=== PATIENT | female | born 1960 | race Caucasian/White ===

== ENCOUNTER 2018-06-30 09:20 | Emergency (ER) | payer SELFPAY ==
[2018-06-30] MEDS ORDERED: DEBROX15 ML OT (09:32)
[2018-06-30 09:35] VITALS: BP 163/83
== END 2018-06-30 09:54 | disposition home or self-care (01) ==
LOC: ER 09:20
DX: H92.02 Otalgia, left ear (principal); H61.22 Impacted cerumen, left ear; F17.210 Nicotine dependence, cigarettes, uncomplicated
CPT/HCPCS: 99282

== ENCOUNTER 2019-01-19 09:18 | Emergency (ER) | payer SELFPAY ==
[~2019-01-19 09:18] MED LIST: DEBROX15 ML OT
[2019-01-19] MEDS ORDERED: SODIUM CHLORIDE 0.9% 1000ML 1,000 ML ONE (09:39)
[2019-01-19] MEDS ORDERED: SODIUM CHLORIDE 0.9% 1000ML 1,000 ML IV ONE (09:45)
[2019-01-19] MEDS ORDERED: DICYCLOMINE HCL 20 MG/2 ML VIAL IM ONE (09:45)
[2019-01-19 09:51] LABS: BASOPHILS % 0.8 % (0.0-1.0); EOSINOPHILS # (AUTO) 0.1 (0.0-0.4); EOSINOPHILS % 1.6 % (0.0-6.0); HEMATOCRIT 44.5 % (34.2-44.1); HEMOGLOBIN 14.6 g/dL (12.0-16.0); LYMPHOCYTES # (AUTO) 1.4 (1.0-3.2); MEAN CORPUSCULAR HEMOGLOBIN 25.6 pg (28-32); MEAN CORPUSCULAR HGB CONC 32.8 g/dL (31-35); MEAN CORPUSCULAR VOLUME 78.1 fL (81-99); MONOCYTES # (AUTO) 0.4 (0.2-0.8); MONOCYTES % 8.3 % (4.4-11.3); NEUTROPHILS % 61.1 % (38.7-80.0); PLATELET COUNT 183 x10e3/uL (140-360); RED CELL DISTRIBUTION WIDTH 13.7 % (11.7-14.4)
[2019-01-19] MEDS ORDERED: KETOROLAC TROMETHAMINE 30 MG/ML VIAL IV ONE (10:00)
[2019-01-19 10:07] LABS: BILIRUBIN,URINE NEGATIVE (NEGATIVE); CLARITY,URINE SL CLOUDY (CLEAR); COLOR,URINE YELLOW (YELLOW); KETONES,URINE NEGATIVE (NEGATIVE); LEUKOCYTE ESTERASE ,URINE 1+ (NEGATIVE); NITRITE,URINE NEGATIVE (NEGATIVE); PROTEIN,URINE DIPSTICK NEGATIVE (NEGATIVE); URINE UROBILINOGEN 0.2 mg/dL (0.2 - 1)
[2019-01-19 10:22] LABS: ALANINE AMINOTRANSFERASE 15 IU/L (0-55); ALBUMIN 4.2 g/dL (3.5-5.0); ALBUMIN/GLOBULIN RATIO 1.1 (0.8-2.0); ALKALINE PHOSPHATASE 85 IU/L (40-150); AMYLASE 29 U/L (25-125); ANION GAP 10.3 mmol/L (8-16); BLOOD UREA NITROGEN 11 mg/dL (7-26); BUN/CREATININE RATIO 14 (6-25); CALCIUM 9.8 mg/dL (8.4-10.2); CARBON DIOXIDE 29 mmol/L (22-29); CHLORIDE 101 mmol/L (98-107); CREATININE, SERUM 0.79 mg/dL (0.57-1.11); EST GLOMERULAR FILTRATION RATE > 60 ML/MIN (60-); GLUCOSE 93 mg/dL (74-118); LIPASE 20 U/L (8-78); POTASSIUM 4.3 mmol/L (3.5-5.1); SODIUM 136 mmol/L (136-145)
[2019-01-19 10:25] LABS: BACTERIA,URINE RARE /HPF; EPITHELIAL CELLS,URINE RARE /LPF
[2019-01-19 10:26] LABS: AMORPHOUS SEDIMENT,URINE FEW (FEW); TRANSITIONAL EPI CELLS,URINE RARE
[2019-01-19] MEDS ORDERED: CEFTRIAXONE SOD 1 GM/NS 50 ML 50 ML IV ONE (10:45)
--- NOTE | 2019-01-19 13:19 | Diagnostic Imaging Report ---
EXAM: CT Abdomen and Pelvis WITH contrast INDICATION: Abdominal Pain COMPARISON: None. TECHNIQUE: Abdomen and pelvis were scanned utilizing a multidetector helical scanner from the lung base to the pubic symphysis after administration of IV contrast. Coronal and sagittal reformations were obtained. Routine protocol was performed. Scan was performed when during portal venous phase. IV CONTRAST: 100 cc of Isovue-[id number]. ORAL CONTRAST: Water COMPLICATIONS: None RADIATION DOSE: Total DLP: 859.1 mGy*cm Dose modulation, iterative reconstruction, and/or weight based adjustment of the mA/kV was utilized to reduce the radiation dose to as low as reasonably achievable. FINDINGS: LINES and TUBES: None. LOWER THORAX: Mosaic attenuation may reflect air trapping versus atelectasis. HEPATOBILIARY: Diffuse mild hepatic steatosis. No evidence of focal lesion. No biliary ductal dilation. GALLBLADDER: Cholelithiasis without CT evidence of cholecystitis. 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 No splenomegaly. PANCREAS: No focal masses or ductal dilatation. ADRENALS: No adrenal nodules KIDNEYS/URETERS: Kidneys enhance symmetrically. No evidence of solid mass or stone. Punctate right renal hypodensities are too small to characterize, but likely represent cysts. Bilateral pelviectasis without shauna hydronephrosis. GI TRACT: No evidence of wall thickening or distension. Appendix is not clearly identified. There is however no fat stranding or adenopathy in the right lower quadrant to suggest appendicitis. Small hiatal hernia. Mild circumferential thickening of the distal esophagus. PELVIC ORGANS/BLADDER: Unremarkable. LYMPH NODES: No lymphadenopathy. VESSELS: Unremarkable. PERITONEUM / RETROPERITONEUM: No free air or fluid. BONES AND SOFT TISSUES: No acute osseous abnormality. No suspicious lytic or blastic lesions. CONCLUSION: Cholelithiasis without CT evidence of cholecystitis. Diffuse mild hepatic steatosis. Appendix is not identified, however no secondary signs of appendicitis. Small hiatal hernia. Mild circumferential thickening of the distal esophagus may reflect esophagitis in the setting of reflux. Suggest clinical correlation. 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 Follow-up CT angiogram of the abdomen and pelvis is suggested in 12 months. Signed by: Dr. Rhonda Nixon MD on 01/19/2019 1:15 PM
[2019-01-19] MEDS ORDERED: FAMOTIDINE40 MG PO (13:32)
[2019-01-19] MEDS ORDERED: OMEPRAZOLE40 MG PO (13:32)
[2019-01-19] MEDS ORDERED: KEFLEX500 MG PO (13:40)
[2019-01-19] MEDS ORDERED: IOPAMIDOL 370 MG/ML 200 ML INFUS..BTL INJ ONE (15:56)
[2019-01-19] MEDS ORDERED: SODIUM CHLORIDE 0.9% 50ML 50 ML ONE (15:56)
== END 2019-01-19 13:55 | disposition home or self-care (01) ==
LOC: ER 09:18
DX: R10.11 Right upper quadrant pain (principal); R10.13 Epigastric pain; K80.20 Calculus of gallbladder without cholecystitis without obstruction; K21.0 Gastro-esophageal reflux disease with esophagitis; K25.3 Acute gastric ulcer without hemorrhage or perforation; N30.90 Cystitis, unspecified without hematuria
CPT/HCPCS: 36415; 74177; 80053; 81001; 82150; 83690; 85025; 99284; J0500; J0696; J1885; J7030; Q9967

== ENCOUNTER → 2020-03-18 | Emergency (ER) | payer SELFPAY ==
[~2020-03-18] MED LIST changes: +FAMOTIDINE40 MG PO; +KEFLEX500 MG PO; +LIDOCAINE HCL 1% LOCAL INJ 20 ML VIAL ONE; +OMEPRAZOLE40 MG PO
== END | disposition left against medical advice (07) ==
LOC: ER 22:00
DX: S89.90XA Unspecified injury of unspecified lower leg, initial encounter (principal)
CPT/HCPCS: J2001

== ENCOUNTER 2021-11-01 18:41 | Emergency (ER) | payer SELFPAY ==
[~2021-11-01] VITALS: Ht 160 cm; Wt 132.0 kg
[~2021-11-01 18:41] MED LIST changes: -LIDOCAINE HCL 1% LOCAL INJ 20 ML VIAL ONE
[2021-11-01] MEDS ORDERED: DICYCLOMINE HCL 20 MG/2 ML VIAL IM ONE (18:45)
[2021-11-01] MEDS ORDERED: Morphine 4mg Syringe 4 MG/ML INJ IV ONE (18:45)
[2021-11-01] MEDS ORDERED: ONDANSETRON HCL INJ 2MG/ML 2ML 2 MG/ML VIAL IV STA (18:45)
[2021-11-01 19:07] LABS: BASOPHILS % 0.5 % (0.0-1.0); EOSINOPHILS # (AUTO) 0.1 (0.0-0.4); EOSINOPHILS % 1.5 % (0.0-6.0); HEMATOCRIT 41.9 % (34.2-44.1); HEMOGLOBIN 12.9 g/dL (12.0-16.0); LYMPHOCYTES # (AUTO) 1.7 (1.0-3.2); LYMPHOCYTES % 26.2 % (18.0-39.1); MEAN CORPUSCULAR HEMOGLOBIN 24.5 pg (28-32); MEAN CORPUSCULAR HGB CONC 30.8 g/dL (31-35); MEAN CORPUSCULAR VOLUME 79.5 fL (81-99); MONOCYTES # (AUTO) 0.5 (0.2-0.8); MONOCYTES % 7.5 % (4.4-11.3); NEUTROPHILS # (AUTO) 4.2 (2.1-6.9); PLATELET COUNT 176 x10e3/uL (140-360); RED BLOOD COUNT 5.27 x10e6/uL (3.6-5.1); RED CELL DISTRIBUTION WIDTH 15.2 % (11.7-14.4)
[2021-11-01 19:37] LABS: ALBUMIN/GLOBULIN RATIO 1.1 (0.8-2.0); CALCIUM 9.2 mg/dL (8.4-10.2); CREATININE, SERUM 0.75 mg/dL (0.57-1.11)
[2021-11-01 19:38] LABS: AMYLASE 32 U/L (25-125); LIPASE 22 U/L (8-78)
== END 2021-11-01 20:10 | disposition home or self-care (01) ==
LOC: ER 18:49
DX: R10.11 Right upper quadrant pain (principal); K80.80 Other cholelithiasis without obstruction; F17.210 Nicotine dependence, cigarettes, uncomplicated
CPT/HCPCS: 36415; 80053; 82150; 83690; 85025; 99283; C9113; J0500; J2270; J2405